=== PATIENT | female | born 1995 | race Asian ===

== ENCOUNTER 2020-05-16 07:54 | Day surgery (SDC) | payer MEDICAID, SELFPAY ==
[~2020-05-16] VITALS: Ht 157.5 cm; Wt 60.3 kg
[2020-05-16] MEDS ORDERED: fentaNYL CITRATE/PF 100 MCG/2 ML AMP ONE (08:05)
[2020-05-16] MEDS ORDERED: SIMETHICONE 40 MG/0.6 ML ML ONE (08:05)
[2020-05-16] MEDS ORDERED: MIDAZOLAM HCL 5 MG/5 ML VIAL ONE (08:06)
[2020-05-16 08:27] LABS: HCG,QUAL RESULT NEGATIVE (NEGATIVE)
[2020-05-16] MEDS: MIDAZOLAM HCL 5 MG/5 ML VIAL IVP ONE ×3 (09:30→09:42)
[2020-05-16] MEDS: fentaNYL CITRATE/PF 100 MCG/2 ML AMP IVP ONE ×2 (09:31→09:36)
[2020-05-16 13:36] VITALS: BP_SYST 92
== END 2020-05-16 11:08 | disposition home or self-care (01) ==
LOC: SMU 07:54 → SDS 07:54
PROVIDERS: ATTEND Internal Medicine
DX: K62.5 Hemorrhage of anus and rectum (principal); K64.8 Other hemorrhoids; Z80.0 Family history of malignant neoplasm of digestive organs
CPT/HCPCS: 36415; 45378; 84703; 87426; 99152; G0378; J2250; J3010; J7030